=== PATIENT | male | born 1985 | race African-American/Black ===

== ENCOUNTER 2016-10-30 18:35 | Emergency (ER) | payer OTHER ==
[~2016-10-30] VITALS: Ht 177.8 cm; Wt 83.9 kg
[2016-10-30] MEDS ORDERED: VIAG100T PO (18:52)
[2016-10-30] MEDS ORDERED: SKEL-29 PO (18:52)
[2016-10-30] MEDS ORDERED: TYLE325T5 PO (18:52)
[2016-10-30] MEDS ORDERED: PRAZ1CAP PO (18:52)
[2016-10-30] MEDS ORDERED: VITA500046 PO (18:52)
[2016-10-30] MEDS ORDERED: LEXA1TAB2 PO (18:52)
[2016-10-30] MEDS ORDERED: AMIT25TA PO (18:52)
[2016-10-30] MEDS: NORCO, ANEXSIA 5/325MG TABLET (HYDROcodone/ACETAMINOPHEN) PO ONE (20:18)
[2016-10-30] MEDS ORDERED: IBUP600T26 PO (20:49)
[2016-10-30 20:55] VITALS: BP 134/80
--- NOTE | 2016-10-31 09:16 | REP ---
BILATERAL KNEES, COMPLETE: 10/30/2016. Clinical history: Bilateral knee pain. Findings: There are no prior studies. Five views of each knee were provided. Right knee: No joint space narrowing of any of the three compartments. There is no loose body, osteochondral defect or suprapatellar effusion. There is no avulsion. No visible fracture. No patellar subluxation. No prepatellar swelling. Impression:1. Negative for fracture, joint effusion, joint space narrowing, loose body, osteochondral defect or other acute finding. Left knee: No joint space narrowing of any of the three compartments. There is no loose body, osteochondral defect or suprapatellar effusion. There is no avulsion. No visible fracture. No patellar subluxation. No prepatellar swelling. Impression:1. Negative for fracture, joint effusion, joint space narrowing, loose body, osteochondral defect or other acute finding. Signed by Rafat Davidson MD 10/31/2016 10:50 A
== END 2016-10-30 21:04 | disposition home or self-care (01) ==
LOC: M ED 20:44
DX: M25.561 Pain in right knee (principal); M25.562 Pain in left knee; M54.9 Dorsalgia, unspecified; F32.9 Major depressive disorder, single episode, unspecified; F41.9 Anxiety disorder, unspecified; Z79.899 Other long term (current) drug therapy

== ENCOUNTER → 2017-03-31 | Outpatient (REF) | payer OTHER ==
[~2017-03-31] MED LIST: AMIT25TA PO; IBUP-1022 PO; LEXA1TAB2 PO; PRAZ1CAP PO; SKEL800T97 PO; TYLE325T5 PO; VIAG100T PO; VITA500046 PO
[2017-03-31 14:38] LABS: VITAMIN B12 LEVEL 1114 PG/ML
[2017-04-03 08:06] LABS: VITAMIN E LEVEL 13.4 mg/L (5.3-17.5)
== END ==
LOC: M LABNEURO 13:55
PROVIDERS: ATTEND Psychiatry & Neurology Neurology
DX: R51 Headache (principal); R41.3 Other amnesia